=== PATIENT | female | born 1965 | race Caucasian/White ===

== ENCOUNTER → 2016-09-17 | Outpatient (CLI) | payer MEDICARE, MEDICAID ==
[~2016-09-17] MED LIST: ATARAX50 MG PO; CLONAZEPAM PO; CYMBALTA 30MG30 MG PO; DESYREL 100MG100 MG PO; FLEXERIL10 MG PO; IMITREX25 MG PO; KLONOPIN 0.5MG0.5 MG PO; KLONOPIN 1MG1 MG PO; LAMICTAL 100MG100 MG PO; LAMICTAL150 MG PO; LAMICTAL200 MG PO; LEVOXYL0.075 MG PO; LEVOXYL0.112 MG PO; NEURONTIN300 MG/CAP PO; NORCO 325 MG-51 TAB PO; OXY IR5 MG PO; PEPCID 20MG TAB20 MG PO; PERCOCET 325 MG1 TA2 PO; PHENERGAN 25 TA25 MG PO; PHENERGAN25 MG RC; SEROQUEL 2525 MG/TAB PO; SEROQUEL50 MG PO; SYNTHROID0.05 MG/TA PO; VALIUM 5MG T5 MG/TAB PO; WELLBUTRIN XL150 MG PO; ZOFRAN ODT4 MG PO; ZOLOFT
== END ==
LOC: BHSO 15:40
DX: F31.81 Bipolar II disorder (principal)

== ENCOUNTER → 2016-12-25 | Outpatient (CLI) | payer MEDICARE, MEDICAID | LOC: BHSO 15:07 | DX: F31.81 Bipolar II disorder (principal) ==

== ENCOUNTER → 2017-02-03 | Outpatient (CLI) | payer MEDICARE, MEDICAID | LOC: COL.RAD 12:37 | DX: D25.9 Leiomyoma of uterus, unspecified (principal) ==

== ENCOUNTER → 2017-04-27 | Outpatient (CLI) | payer MEDICARE, MEDICAID ==
[~2017-04-27] MED LIST changes: +CEPHALEXIN500 M1 PO
== END ==
LOC: BHSO 15:08
DX: F31.81 Bipolar II disorder (principal)

== ENCOUNTER 2017-05-15 17:30 | Emergency (ER) | payer MEDICARE, MEDICAID ==
[2008-10-26 21:57] VITALS: BP 110/60
[~2017-05-15] VITALS: Ht 165.1 cm; Wt 106.4 kg
[~2017-05-15 17:30] MED LIST changes: -CEPHALEXIN500 M1 PO
[2017-05-15 17:36] VITALS: TEMP 98.5
[2017-05-15] MEDS ORDERED: CEPHALEXIN500 M1 PO (18:39)
[2017-05-15 18:48] VITALS: BP 134/70; PULSE 68
== END 2017-05-15 18:48 | disposition home or self-care (01) ==
LOC: COL.ER 17:30
DX: T88.0XXA Infection following immunization, initial encounter (principal); L03.114 Cellulitis of left upper limb

== ENCOUNTER → 2018-01-04 | Outpatient (CLI) | payer MEDICARE, MEDICAID ==
[~2018-01-04] MED LIST changes: +CEPHALEXIN500 M1 PO
== END ==
LOC: BHSO 10:20
DX: F31.81 Bipolar II disorder (principal)
CPT/HCPCS: G0463

== ENCOUNTER → 2019-01-13 | Outpatient (CLI) | payer MEDICARE, MEDICAID | LOC: BHSO 14:24 | DX: F31.81 Bipolar II disorder (principal) | CPT/HCPCS: G0463 ==

== ENCOUNTER → 2019-01-30 | Outpatient (CLI) | payer MEDICARE, MEDICAID | LOC: COL.VAS 14:15 | DX: I82.402 Acute embolism and thrombosis of unspecified deep veins of left lower extremity (principal) ==

== ENCOUNTER → 2019-05-04 | Outpatient (CLI) | payer MEDICARE, MEDICAID | LOC: BHSO 11:19 | DX: F31.81 Bipolar II disorder (principal) | CPT/HCPCS: G0463 ==

== ENCOUNTER → 2020-02-26 | Outpatient (CLI) | payer MEDICARE, MEDICAID | LOC: MC.RAD 14:02 | DX: Z12.31 Encounter for screening mammogram for malignant neoplasm of breast (principal) ==

== ENCOUNTER 2022-01-03 14:46 | Emergency (ER) | payer MEDICARE, MEDICAID ==
[~2022-01-03] VITALS: Ht 165.1 cm; Wt 113.6 kg
[2022-01-03 15:05] VITALS: BP 129/85; TEMP 98.8
[2022-01-03] MEDS ORDERED: MEDROL 4MG DOSPA4 MG PO (15:38)
[2022-01-03] MEDS ORDERED: NORCO 325 MG-51 TAB PO (15:38)
[2022-01-03] MEDS ORDERED: NORFLEX 10100 MG/TAB PO (15:38)
[2022-01-03 15:50] VITALS: PULSE 60
== END 2022-01-03 15:50 | disposition home or self-care (01) ==
LOC: COL.ER 14:46
DX: M54.42 Lumbago with sciatica, left side (principal); Z87.891 Personal history of nicotine dependence; Z88.6 Allergy status to analgesic agent
CPT/HCPCS: J1885; J2360

== ENCOUNTER 2022-03-09 16:00 | Outpatient (RCR) | payer MEDICARE, MEDICAID ==
[~2022-03-09 16:00] MED LIST changes: +MEDROL 4MG DOSPA4 MG PO; +NORFLEX 10100 MG/TAB PO
== END 2022-03-22 | disposition home or self-care (01) ==
LOC: PT.GENESIS
DX: M50.30 Other cervical disc degeneration, unspecified cervical region (principal); R29.898 Other symptoms and signs involving the musculoskeletal system

== ENCOUNTER → 2022-03-10 | Outpatient (CLI) | payer MEDICARE, MEDICAID | LOC: COL.RAD 09:51 | DX: Z82.49 Family history of ischemic heart disease and other diseases of the circulatory system (principal) ==

== ENCOUNTER → 2022-03-13 | Outpatient (CLI) | payer MEDICARE, MEDICAID | LOC: COL.RAD 03-12 07:30 | DX: M51.36 Other intervertebral disc degeneration, lumbar region (principal); M51.37 Other intervertebral disc degeneration, lumbosacral region; M48.062 Spinal stenosis, lumbar region with neurogenic claudication ==

== ENCOUNTER → 2022-04-22 | Outpatient (CLI) | payer MEDICARE, MEDICAID | LOC: COL.RAD 04-15 13:30 | DX: Z12.2 Encounter for screening for malignant neoplasm of respiratory organs (principal); F17.210 Nicotine dependence, cigarettes, uncomplicated ==

== ENCOUNTER 2022-10-17 20:07 | Emergency (ER) | payer MEDICARE, MEDICAID ==
[~2022-10-17] VITALS: Ht 165.1 cm; Wt 113.6 kg
[2022-10-17 20:17] VITALS: TEMP 97
[2022-10-17 20:33] LABS: BASO # 0.1 K/mm3 (0.0-0.2); BASO % 0.6 % (0.0-2.0); GRAN # 6.7 K/mm3 (1.4-6.5); GRAN % 81.6 % (42.2-75.2); HEMOGLOBIN 14.4 g/dl (12.5-16.0); LYMPH # 1.2 K/mm3 (1.2-3.4); LYMPH % 14.4 % (20.0-51.0); MEAN CELL VOLUME 87 fl (80.0-100.0); MEAN CORPUSCULAR HEMOGLOBIN 29 pg (27-31); MEAN CORPUSCULAR HGB CONC 34 g/dl (33.0-37.0); MEAN PLATELET VOLUME 9.7 fl (7.4-10.4); MONO # 0.2 K/mm3 (0.1-0.6); MONO % 2.1 % (1.7-9.3); PLATELET COUNT 469 K/mm3 (130-400); RED BLOOD COUNT 4.97 M/mm3 (4.10-5.30); REDCELL DISTRIBUTION WIDTH-CV 12.5 % (11.5-14.5)
[2022-10-17 20:51] LABS: ALANINE AMINOTRANSFERASE 14 U/L (0-55); ALBUMIN 3.8 gm/dL (3.5-5.0); ALKALINE PHOSPHATASE 135 U/L (40-150); ANION GAP 13 mmol/L (7-16); AST,SGOT 16 U/L (5-34); BILIRUBIN,TOTAL 0.2 mg/dL (0.2-1.2); BLOOD UREA NITROGEN 13 mg/dL (10-20); CALCIUM 10.3 mg/dL (8.4-10.2); CARBON DIOXIDE 23 mmol/L (22-29); CHLORIDE 101 mmol/L (98-107); CREATININE, serum 0.95 mg/dL (0.57-1.11); GLUCOSE 159 mg/dL (70-99); POTASSIUM 4.1 mmol/L (3.5-4.5); SODIUM 137 mmol/L (136-145); TOTAL PROTEIN 8.3 gm/dL (6.2-8.1)
[2022-10-17 20:58] LABS: TROPONIN-I < 0.010 ng/mL (0.00-0.033)
[2022-10-17 22:11] VITALS: BP 165/65; PULSE 89
== END 2022-10-17 22:31 | disposition home or self-care (01) ==
LOC: COL.ER 20:07
PROVIDERS: Emergency Medicine
DX: M54.2 Cervicalgia (principal); I10 Essential (primary) hypertension; Z87.891 Personal history of nicotine dependence
CPT/HCPCS: J1885; J3010

== ENCOUNTER → 2023-08-26 | Outpatient (CLI) | payer MEDICARE, MEDICAID | LOC: MHCPAIN 09:02 | DX: M47.817 Spondylosis without myelopathy or radiculopathy, lumbosacral region (principal) | CPT/HCPCS: J0665 ==

== ENCOUNTER → 2024-02-10 | Outpatient (CLI) | payer MEDICARE, MEDICAID | LOC: MHCPAIN 09:43 | DX: M47.817 Spondylosis without myelopathy or radiculopathy, lumbosacral region (principal); M54.50 Low back pain, unspecified ==

== ENCOUNTER → 2024-04-28 | Outpatient (CLI) | payer MEDICARE, MEDICAID | LOC: MHCPAIN 11:00 | DX: M75.42 Impingement syndrome of left shoulder (principal); G93.5 Compression of brain; I10 Essential (primary) hypertension; E03.9 Hypothyroidism, unspecified; M54.2 Cervicalgia; M54.50 Low back pain, unspecified | CPT/HCPCS: G0463 ==

== ENCOUNTER → 2024-05-29 | Outpatient (CLI) | payer MEDICARE, MEDICAID ==
[~2024-05-29] MED LIST changes: +Iohexol 300 - 10 ML VIAL ONE; +Lidocaine PF 2% (20 MG/ML) 2 ML VIAL ONE
== END ==
LOC: MHCPAIN 09:29
DX: M54.16 Radiculopathy, lumbar region (principal); M54.50 Low back pain, unspecified
CPT/HCPCS: J1100; Q9967